=== PATIENT | female | born 1960 | race Caucasian/White ===

== ENCOUNTER 2020-01-28 15:12 | Emergency (ER) | payer BC, OTHER ==
[2020-01-28 15:47] LABS: Bilirubin Negative (Negative); Blood, Urine Small (Negative); Clarity Clear (Clear); Glucose, Urine (Dipstick) Negative (Negative); Ketone, Urine Negative (Negative); Leukocyte Trace (Negative); Nitrite Negative (Negative); Protein, Urine (Dipstick) Negative (Neg-Trace); Urobilinogen 0.2 mg/dL (Less than 2)
[2020-01-28 15:51] LABS: Bacteria/HPF Rare-Few HPF (None Seen); RBC/HPF 0-3 HPF (0-3); Squamous Epithelial 0-3 HPF (0-3); WBC/HPF 0-3 HPF (0-3)
--- NOTE | 2020-01-28 16:27 | CT ---
CT Stone Protocol 01/28/2020 3:59 PM HISTORY: Right flank pain. COMPARISON: None. Technique: Multiple contiguous axial CT images are obtained through the abdomen and pelvis without IV contrast. Coronal reformats are provided. FINDINGS: This examination is limited for the evaluation of solid organs and vascular structures due to the lac k of intravenous contrast. Lower Chest: Lung bases are clear. Liver: Grossly normal non-enhanced CT appearance. Gallbladder: Gallbladder calculi are visualized. There is also associated increased density material within the decompressed gallbladder which may represent associated sludge. Pancreas: Grossly normal nonenhanced CT appearance. Spleen: Grossly normal nonenhanced CT appearance. Adrenals: Grossly normal nonenhanced CT appearance. Kidneys, ureters, urinary bladder: There is mild right hydronephrosis and hydroureter. Distal ureters are difficult to visualize due to unopacified structures in the pelvis, but there is a 3 mm calcification seen in the expected location of the right UVJ which is likely related to a partially o bstructing right UVJ calculus. No left renal or ureteral calculus is visualized. Urinary bladder has a normal CT appearance. Reproductive Organs: No pelvic masses. Lymph Nodes: No enlarged lymph nodes. Bowel: Small amount of retained fecal material throughout the colon. Loops of small bowel are normal in caliber. Appendix: The appendix is normal in caliber. Peritoneum: No free fluid, free air, or fluid collection. Retroperitoneum: within normal limits. Vessels: Abdominal aorta is normal in caliber.. Abdominal Wall: within normal limits. Bones: Mild generative changes in the spine. Trace anterolisthesis of L4 on L5 is present with facet degenerative changes are present IMPRESSION: 1. Partially obstructing right UVJ calculus measuring 3 mm. 2. Cholelithiasis and probable small amount of gallbladder sludge. 3. Degenerative changes lower lumbar spine with trace anterolisthesis of L4 on L5.
[2020-01-28] MEDS ORDERED: Ketorolac Tromethamine 30 MG/ML VIAL ONE (16:51)
== END 2020-01-28 17:15 | disposition home or self-care (01) ==
LOC: MADERS 15:12
DX: N13.2 Hydronephrosis with renal and ureteral calculous obstruction (principal); I10 Essential (primary) hypertension
CPT/HCPCS: 74176; 81003; 81015; 87086; 96372; J1885